=== PATIENT | female | born 1995 | race American Indian/Alaskan Native ===

== ENCOUNTER 2017-05-25 01:35 | Inpatient (IN) | payer MEDICAID ==
[2017-05-25 01:41] VITALS: BMI 47.7
--- NOTE | 2017-05-25 01:58 | ED PDOC ---
Psych Transfer Clearance - Clearance Statement Clearance Statement: Reviewed vital signs, lab results and transfer papers. Patient clinically stable for psychiatric admission.
[2017-05-25] MEDS ORDERED: Magnesium Hydroxide Susp 30 ml UD PO PRN (02:06)
[2017-05-25] MEDS ORDERED: Alum-Mag Hydrox-Simethicone Susp (30 mL) PO PRN (02:06)
[2017-05-25] MEDS ORDERED: DiphenhydrAMINE 50 mg/ml Inj IM PRN (02:06)
--- NOTE | 2017-05-25 03:03 | PCM.BM ---
<Vish Haynes - Last Filed: 05/25/17 03:01> Treatment Plan Problems - Problems identified on initial assessmt Feelings of worthlessness Date Initiated: 05/25/17 Time Initiated: 03:02 Assessment reference: NA Status: Active Altered sleep Date Initiated: 05/25/17 Time Initiated: 03:02 Assessment reference: NA Status: Active Treatment assets and liabiliti Patient Assests: cooperative, educated, negotiates basic needs Patient Liabilities: poor support system, dietary restrictions, substance abuse , medical problems - Milieu Protocol Maintain good personal hygiene: daily Encourage regular showers, daily Remind patient to perform daily oral care, daily Assist patient to perform ADL's Conduct patient checks and document Observation sheet: Q15 minutes Maintain personal safety: every shift Educate patient to report safety concerns to staff, every shift Monitor environment for contraband/sharps Medication safety: Monitor for expected outcome, potential side effects: every shift, Assess barriers to learning: every shift, Assess readiness for medication education: every shift Family Contact Family involvement: Famliy/SO not involved Discharge/Continuing Care - Education Needs Education Needs: Patient Medication, Patient Diagnosis/Disease Process, Patient Coping Skills, Patient Community resources, Patient Activities of Daily Living, Patient Nutrition, Patient Aftercare Safety Plan - Discharge Discharge Criteria: Tolerates medication w/o severe side effects, Free of Suicidal thoughts, Normal sleep pattern, Ability to care for self, No longer exhibiting s/s of withdrawal Discharge to:: Home <Aixa Gomez - Last Filed: 05/27/17 10:57> Treatment assets and liabiliti Patient Assests: adapts well, cooperative, educated, insightful, ADL independent , good support system, negotiates basic needs Patient Liabilities: financial problems, dietary restrictions, substance abuse, medical problems Family Contact Family involvement: Family/SO is involved Family contact: Patient agrees to contact Family contact name: Nanda Akhtar (mother) ([phone]) Family contacted how many times per week?: 1 Family contact comment: Patient reports there are specific times mother answers her phone. Cytology Technologist provided business card for patient to give mother so that junior technical writer can be contacted at a convenient time for Ms. Akhtar. - Goals for Treatment Patient goals for treatment: Patient presents as goal oriented and expresses being motivated for tx. Patient to continue stabilization on 3NP through medication management and group/supportive therapy. Patient to be encouraged to attend 3-6 groups weekly to develop coping skills, improve insight and promote compliance and sobriety upon discharge. Patient to be provided with referral for appropriate level of aftercare. Patient ambivalent regarding inpatient rehab referrals but has agreed to initiate referral process. Patient agreeable to IOP referral to [facility] in the event that patient is placed on rehab waiting lists. Discharge/Continuing Care - Education Needs Education Needs: Family Medication, Family Diagnosis/Disease Process, Family Coping Skills, Family Aftercare Safety Plan, Patient Medication, Patient Diagnosis/Disease Process, Patient Coping Skills, Patient Community resources, Patient Aftercare Safety Plan - Discharge Discharge Criteria: Tolerates medication w/o severe side effects, Free of Suicidal thoughts, Normal sleep pattern, Ability to care for self, No longer exhibiting s/s of withdrawal Discharge to:: Home, With Family - Treatment Team Participation Patient/Family/SO Statement: 05/27/17 10:56 Patient invited and encouraged to attend treatment team by RN. As per RB BW patient stated "I'm about to step into the shower" and declined to attend treatment team despite encouragement from staff.
[2017-05-25] MEDS: Multivitamin With Minerals Tab PO SCH (08:43)
[2017-05-25 09:07] LABS: T4 6.05 ug/dl (5.5-11.0)
[2017-05-25 09:21] LABS: THYROID STIMULATING HORMONE 2.93 mIU/ML (0.46-4.68)
--- NOTE | 2017-05-25 11:11 | CP.PCM.CON ---
History of Present Illness - History of Present Illness History of Present Illness: 21 yo morbidly obeses female with history of DM2 (not on diabetic meds for 2 months) admitted to psyche unit because of worsening depression. Review of Systems - Review of Systems All systems: reviewed and no additional remarkable complaints except (aside from those mentioned above, 12 point system review were negative by me) Past Patient History - Tetanus Immunizations Tetanus Immunization: Unknown - Past Medical History & Family History Past Medical History?: No - Past Social History Smoking Status: Light Smoker < 10 Cigarettes Daily Alcohol: > 2 Drinks/Day Drugs: Denies - CARDIAC Hx Cardiac Disorders: No - PULMONARY Hx Respiratory Disorders: No - NEUROLOGICAL Hx Neurological Disorder: No - HEENT Hx HEENT Problems: Yes Other/Comment: wears glasses - RENAL Hx Chronic Kidney Disease: No - ENDOCRINE/METABOLIC Hx Diabetes Mellitus Type 2: Yes (noncompliant w/metformin for 2 months) - HEMATOLOGICAL/ONCOLOGICAL Hx Blood Disorders: No - INTEGUMENTARY Hx Dermatological Problems: No - MUSCULOSKELETAL/RHEUMATOLOGICAL Hx Musculoskeletal Disorders: No - GASTROINTESTINAL Hx Gastrointestinal Disorders: Yes Other/Comment: has been vomiting over past few days - GENITOURINARY/GYNECOLOGICAL Hx Genitourinary Disorders: Yes Other/Comment: irregular menses last february 2017 - PSYCHIATRIC Hx Anxiety: Yes Hx Depression: Yes Hx Substance Use: No - SURGICAL HISTORY Hx Surgeries: Yes Hx Tonsillectomy: Yes - ANESTHESIA Hx Anesthesia: Yes Hx Anesthesia Reactions: No Hx Malignant Hyperthermia: No Has any member of the family had a problem w/ anesthesia?: No Meds Allergies/Adverse Reactions: Allergies Allergy/AdvReac Type Severity Reaction Status Date / Time No Known Allergies Allergy Verified 05/25/17 01:37 - Medications Medications: Current Medications Al Hydrox/Mg Hydrox/Simethicone (Maalox Plus 30 Ml) 30 ml PO Q4 PRN PRN Reason: Dyspepsia Diphenhydramine HCl (Benadryl) 50 mg IM Q6 PRN PRN Reason: Extrapyramidal S/S Unable PO Diphenhydramine HCl (Benadryl) 50 mg PO Q6 PRN PRN Reason: Extrapyramidal Symptoms Folic Acid (Folic Acid) 1 mg PO DAILY DEVYN Last Admin: 05/25/17 08:43 Dose: 1 mg Haloperidol (Haldol) 5 mg PO Q4 PRN PRN Reason: Agitation Haloperidol Lactate (Haldol) 5 mg IM Q4 PRN PRN Reason: Agitation, Unable to Take PO Lorazepam (Ativan) 2 mg IM Q4 PRN PRN Reason: Anxiety/Agitation,Unable PO Lorazepam (Ativan) 2 mg PO Q4 PRN PRN Reason: Anxiety/Agitation Last Admin: 05/25/17 02:39 Dose: 2 mg Lorazepam (Ativan) 1 mg PO TID PENDING SALE TO [facility] Last Admin: 05/25/17 08:43 Dose: 1 mg Magnesium Hydroxide (Milk Of Magnesia) 30 ml PO HS PRN PRN Reason: Constipation Multivitamins/Minerals (Therapeutic-M Tab) 1 tab PO DAILY PENDING SALE TO [facility] Last Admin: 05/25/17 08:43 Dose: 1 tab Thiamine HCl (Vitamin B1 Tab) 100 mg PO DAILY PENDING SALE TO [facility] Last Admin: 05/25/17 08:43 Dose: 100 mg Physical Exam - Constitutional Appears: Other (morbidly obese) - Head Exam Head Exam: ATRAUMATIC - Eye Exam Eye Exam: absent: Scleral icterus - ENT Exam ENT Exam: Mucous Membranes Moist - Neck Exam Neck exam: Negative for: Meningismus - Respiratory Exam Respiratory Exam: absent: Rhonchi, Wheezes, Respiratory Distress - Cardiovascular Exam Cardiovascular Exam: REGULAR RHYTHM, +S1, +S2 - GI/Abdominal Exam GI & Abdominal Exam: Soft. absent: Tenderness - Rectal Exam Rectal Exam: Deferred - Neurological Exam Neurological exam: Alert, Oriented x3 - Psychiatric Exam Psychiatric exam: Normal Affect - Skin Skin Exam: Dry, Intact Results - Vital Signs Recent Vital Signs: Last Vital Signs Temp 97.7 F 05/25/17 09:00 Pulse 63 05/25/17 09:00 Resp 18 05/25/17 09:00 BP 159/101 H 05/25/17 09:00 Pulse Ox 97 05/25/17 01:37 - Labs Labs: Laboratory Results - last 24 hr 05/25/17 08:15 Triglycerides 215 H Cholesterol 166 LDL Cholesterol Direct 89 HDL Cholesterol 58 Thyroxine (T4) 6.05 TSH 3rd Generation 2.93 Assessment & Plan (1) Depression Status: Acute Comment: psyche is managing (2) DM2 (diabetes mellitus, type 2) Status: Acute Comment: accuchek ACHS. HgA1C, BMP in am
[2017-05-25 11:35] LABS: BLOOD UREA NITROGEN 7 mg/dl (7-17); CALCIUM 8.6 mg/dL (8.4-10.2); CARBON DIOXIDE 29 mmol/L (22-30); CHLORIDE 95 mmol/L (98-107); GFR AFRICAN-AMERICAN > 60; GLUCOSE,RANDOM 90 mg/dL (65-105); POTASSIUM 3.2 MMOL/L (3.6-5.0); SODIUM 136 mmol/l (132-148)
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
[2017-05-25] MEDS ORDERED: Potassium Chloride 20 mEq ER Tab PO ONE (19:06)
[2017-05-26 08:37] LABS: ALB/GLOB RATIO 1.1 (1.0-2.1); ALKALINE PHOSPHATASE 93 U/L (38-126); ALT/SGPT 89 U/L (9-52); AST/SGOT 179 U/L (14-36); BILIRUBIN,TOTAL 1.7 mg/dl (0.2-1.3); BLOOD UREA NITROGEN 12 mg/dl (7-17); CALCIUM 8.6 mg/dL (8.4-10.2); CARBON DIOXIDE 27 mmol/L (22-30); CHLORIDE 95 mmol/L (98-107); GFR AFRICAN-AMERICAN > 60; GLUCOSE,RANDOM 95 mg/dL (65-105); POTASSIUM 3.3 MMOL/L (3.6-5.0); SODIUM 137 mmol/l (132-148); TOTAL PROTEIN 6.6 G/DL (6.3-8.2)
[2017-05-26] MEDS: Multivitamin With Minerals Tab PO SCH (09:09)
--- NOTE | 2017-05-26 19:26 | PCM.PYCHPN ---
Psychiatric Progress Note - Psychiatric Progress Note Patient seen today, length of contact: chart reviewed case discussed with team Patient Chief Complaint: i was drinking to try to control my anxiety and depression and was feeling overwhelmed Problems Identified/Issues Discussed: alteration in mood alteration in coping substance use etoh active Medical Problems: per chart Diagnostic Results: per psychiatry per medicine per nursing per social work DSM 5 Symptoms Update: alteration in mood, substance use Medication Change: No Medical Record Reviewed: Yes Consults ordered or reviewed: pt being evaluated and followed by hospitalist Mental Status Examination - Cognitive Function Orientation: Person, Place, Situation, Time Memory: Intact Attention: WNL Concentration: WNL Association: [facility] Fund of Knowledge: [facility] Decription of patient's judgement and insights: impaired - Mood Mood: Depressed, Anxious - Affect Affect: Constricted - Speech Speech: Soft Additional comments: varied rate - Formal Thought Process Formal Thought Process: No Impairment - Homicidal Ideation Homicidal Ideation: No Goal/Treatment Plan - Goal/Treatment Plan Need for Continued Stay: Remain at risks for inpatient hospitalization Progress Toward Problem(s) and Goals/Treatment Plan: inpt milieu adjust meds per clinical status vital signs clinical observation per protocol and per status prns per protocol and per status discharge planning in progress Estimated Date of D/C: 06/01/17 - Smoking Cessation Smoking Cessation Initiated: No Reason for not providing: defers need
[2017-05-27] MEDS: Multivitamin With Minerals Tab PO SCH (09:00)
--- NOTE | 2017-05-27 13:33 | PCM.PYCHPN ---
Psychiatric Progress Note - Psychiatric Progress Note Patient seen today, length of contact: discussed with team Patient Chief Complaint: i am depressed Problems Identified/Issues Discussed: pt is agreeable to an inpt rehab referral. acknowledges loss of control over her alcohol use. she is reporting no side effects with zoloft, improved sleep with trazodone. she denies any alcohol withdrawal symptoms. she is tearful and reports she gets negative thoughts that make her feel frustrated. she states she is "trying really hard to talk to people...because at home i would stay in my room and my mom would have to check to see if i was there...but it's hard to not go back to that" Medication Change: No Medical Record Reviewed: Yes Mental Status Examination - Cognitive Function Orientation: Person, Place, Situation, Time Memory: Intact Attention: WNL Concentration: WNL Association: WNL Fund of Knowledge: WNL Decription of patient's judgement and insights: fair - Mood Mood: Depressed Additional comments: no panic reported - Affect Affect: Constricted - Speech Speech: Soft - Formal Thought Process Formal Thought Process: No Impairment - Suicidal Ideation Suicidal Ideation: No Plan: denies current suicidal thoughts - Homicidal Ideation Homicidal Ideation: No Goal/Treatment Plan - Goal/Treatment Plan Need for Continued Stay: Remain at risks for inpatient hospitalization, Severe functional impairment Progress Toward Problem(s) and Goals/Treatment Plan: mdd recurrent moderate alcohol dependence continue with current treatment lower ativan to bid raise zoloft to 75mg daily continue with trazodone for insomnia refer to inpt rehab Estimated Date of D/C: 06/01/17
[2017-05-28] MEDS: Multivitamin With Minerals Tab PO SCH (09:37)
--- NOTE | 2017-05-28 10:15 | PCM.PYCHPN ---
Psychiatric Progress Note - Psychiatric Progress Note Patient seen today, length of contact: discussed with team Patient Chief Complaint: i feel depressed Problems Identified/Issues Discussed: pt still agreeable to substance abuse treatment. she reports her sleep is good. her anxiety is less intense per her report. she states she tries very hard to stay out of her room and she struggles to stay "social" she has periods of tearfulness. Medication Change: Yes (inc. zoloft/neurontin) Medical Record Reviewed: Yes Mental Status Examination - Cognitive Function Orientation: Person, Place, Situation, Time Memory: Intact Attention: WNL Concentration: WNL Association: [facility] Fund of Knowledge: [facility] Decription of patient's judgement and insights: fair - Mood Mood: Depressed - Affect Affect: Constricted - Speech Speech: Soft - Formal Thought Process Formal Thought Process: No Impairment Psychotic Thoughts and Behaviors: denies a/v hallucinations - Suicidal Ideation Suicidal Ideation: No - Homicidal Ideation Homicidal Ideation: No Goal/Treatment Plan - Goal/Treatment Plan Need for Continued Stay: Remain at risks for inpatient hospitalization, Severe functional impairment Progress Toward Problem(s) and Goals/Treatment Plan: mdd recurrent moderate alcohol dependence continue with current treatment lower ativan to 0.5 mg bid tomorrow raise zoloft to 100mg daily continue with trazodone for insomnia refer to inpt rehab Estimated Date of D/C: 06/01/17
[2017-05-28 18:05] VITALS: O2SAT 100
[2017-05-29] MEDS: Multivitamin With Minerals Tab PO SCH (09:07)
[2017-05-29] MEDS ORDERED: Potassium Chloride 20 mEq ER Tab PO ONE (09:30)
--- NOTE | 2017-05-29 10:28 | PCM.PYCHPN ---
Psychiatric Progress Note - Psychiatric Progress Note Patient seen today, length of contact: discussed with team Patient Chief Complaint: im doing well Problems Identified/Issues Discussed: pt still with improved sleep. no withdrawal symptoms. depression persists, but pt feels a little more hopeful. denies medication side effects. Medication Change: No ( ) Medical Record Reviewed: Yes Mental Status Examination - Cognitive Function Orientation: Person, Place, Situation, Time Memory: Intact Attention: WNL Concentration: WNL Association: WNL Fund of Knowledge: [facility] Decription of patient's judgement and insights: fair - Mood Mood: Depressed - Affect Affect: Constricted - Speech Speech: Soft - Formal Thought Process Formal Thought Process: No Impairment Psychotic Thoughts and Behaviors: denies a/v hallucinations - Suicidal Ideation Suicidal Ideation: No - Homicidal Ideation Homicidal Ideation: No Goal/Treatment Plan - Goal/Treatment Plan Need for Continued Stay: Remain at risks for inpatient hospitalization, Severe functional impairment Progress Toward Problem(s) and Goals/Treatment Plan: mdd recurrent moderate alcohol dependence continue with current treatment lower ativan to 0.5 mg bid continue zoloft 100mg daily continue with trazodone for insomnia refer to inpt rehab Estimated Date of D/C: 06/01/17
[2017-05-29 18:59] VITALS: RESP 18
[2017-05-30] MEDS: Multivitamin With Minerals Tab PO SCH (09:22)
--- NOTE | 2017-05-30 11:18 | PCM.PYCHPN ---
Psychiatric Progress Note - Psychiatric Progress Note Patient seen today, length of contact: discussed with team Patient Chief Complaint: i had poor sleep Problems Identified/Issues Discussed: pt reports frequent urination last night. she reports feeling dizzy when she stands up. she is feeling depressed about being in the hospital. Medication Change: No ( ) Medical Record Reviewed: Yes Mental Status Examination - Cognitive Function Orientation: Person, Place, Situation, Time Memory: Intact Attention: WNL Concentration: WNL Association: WNL Fund of Knowledge: [facility] Decription of patient's judgement and insights: fair - Mood Mood: Depressed - Affect Affect: Constricted - Speech Speech: Soft - Formal Thought Process Formal Thought Process: No Impairment Psychotic Thoughts and Behaviors: denies a/v hallucinations - Suicidal Ideation Suicidal Ideation: No - Homicidal Ideation Homicidal Ideation: No Goal/Treatment Plan - Goal/Treatment Plan Need for Continued Stay: Remain at risks for inpatient hospitalization, Severe functional impairment Progress Toward Problem(s) and Goals/Treatment Plan: mdd recurrent moderate alcohol dependence continue with current treatment [facility] has called hospitalist regarding pts. complaints of frequent urination and dizziness continue zoloft 100mg daily- may need to reduce back to 75mg continue with trazodone for insomnia refer to inpt rehab Estimated Date of D/C: 06/01/17
[2017-05-30 13:36] LABS: RBC URINE 1 /hpf (0-3); URINE BILIRUBIN NEGATIVE (NEGATIVE); URINE BLOOD NEGATIVE (NEGATIVE); URINE COLOR YELLOW (YELLOW); URINE GLUCOSE (UA) NEG (Normal); URINE KETONE NEGATIVE (NEGATIVE); URINE LEUKOCYTE ESTERASE NEG Leu/uL (Negative); URINE PROTEIN NEGATIVE (NEGATIVE); URINE UROBILINOGEN 0.2-1.0 mg/dL (0.2-1.0); WBC URINE 1 /hpf (0-5)
[2017-05-31] MEDS: Multivitamin With Minerals Tab PO SCH (08:57)
[2017-05-31 08:59] VITALS: BP 132/72; PULSE 88
[2017-05-31 09:15] VITALS: TEMP 98.1
--- NOTE | 2017-05-31 10:02 | PCM.PYCHDC ---
Mental Status Examination - Mental Status Examination Orientation: Person, Place, Situation, Time Memory: Intact Mood: Neutral Affect: Broad (smiling, dancing) Speech: Appropriate Attention: WNL Concentration: WNL Association: WNL Fund of Knowledge: WNL Formal Thought Process: No Impairment Description of patient's judgement and insight: fair Psychotic Thoughts and Behaviors: denies a/v hallucinations Suicidal Ideation: No Current Homicidal Ideation?: No Plan: pt denies suicidal or homicidal thoughts/plans or intent Discharge Summary - Discharge Note Reason for Hospitalization: pt reported feeling depressed, having suicidal thoughts in context of alcohol use Psychiatric History (includes Medical, Family, Personal Hx): history of treatment for depression and alcohol use Laboratory Data: Abnormal Lab Results 05/30/17 05/30/17 10:10 13:10 POC Glucose (mg/dL) 87 Urine Color Yellow Urine Clarity Slighty-cloudy Urine pH 6.0 Ur Specific [place] 1.021 Urine Protein Negative Urine Glucose (UA) Neg Urine Ketones Negative Urine Blood Negative Urine Nitrate Negative Urine Bilirubin Negative Urine Urobilinogen 0.2-1.0 Ur Leukocyte Esterase Neg Urine RBC (Auto) 1 Urine Microscopic WBC 1 Ur Squamous Epith Cells 3 Consultations:: List each consultation separately and include: 1. Reason for request. 2. Findings. 3. Follow-up Consultations: seen by hospitalist Summary of Hospital Course include:: 1. Description of specific treatment plan utilized for patients during their course of treatmen. 2. Summarize the time- course for resolution of acute symptoms and/or regressed behaviors. 3. Describe issues identified and worked on during hospitalization. 4. Describe medication utilized. 5. Describe medical problems identified and treated. 6. Reassessment of suicide risk Summary of Hospital Course: pt is 21 yo female with history of alcohol use disorder, depression and anxiety. she is living with her family in [place]. she was hospitalized at [facility] in July and sent to their iop program after her discharge. she states she stopped going to the program and stopped taking her zoloft. she took the trazodone they prescribed as it helped her sleep but ran out of medications. she states she has been feeling depressed and having frequent panic attacks over the last few weeks. she reports she gets short of breath, chest tightening and feels overwhelmed. she reports she has low energy, feels helpless and with poor concentration. she left work and packed all of her things the day she presented to the ER. she has been binge drinking alcohol and presented to [facility] with a BAL of over 250. she reports she drinks a liter or more of vodka at a time. she has tried AA, but did not find it particularly helpful. pt came in seeking help because she feels things are getting out of control for her. she was having suicidal thoughts prior to admission, without a specific plan or intent to harm herself. hospital course: admitted to [facility] and oriented to the unit. placed on routine safety protocols. was started on ativan to prevent alcohol withdrawal complications and the ativan was tapered of and discontinued without any adverse events. she was started on zoloft and the dose was titrated up to 100mg with good effect. the trazodone helped the patient sleep. she was seen by the manager medical writing and started on medication for hypertension. she was referred to aftercare and was also referred to an inpatient rehab program at [facility] for alcohol use disorder. the patient's ativan was discontinued prior to her discharge at the time of discharge the patient was denying suicidal or homicidal thoughts. - Final Diagnosis (DSM 5) Condition upon Discharge: STABLE DSM 5: major depression recurrent moderate alcohol use disorder Disposition: HOME/ ROUTINE Follow-up Treatment Plan: follow up with aftercare as directed take medications as prescribed do not use alcohol, tobacco or other illicit substances call 911 if any suicidal or homicidal thoughts follow up with your primary care doctor regarding your hip pain and your high blood pressure Prescriptions/Medication Reconciliation: Folic Acid 1 mg PO DAILY #30 tab Gabapentin [Neurontin] 400 mg PO TID #45 cap Lisinopril [Zestril] 20 mg PO DAILY #15 tab Multimineral/Multivitamin [Therapeutic-M Tab] 1 tab PO DAILY #30 tab Sertraline [Zoloft] 100 mg PO DAILY #15 tab Thiamine [Vitamin B1 Tab] 100 mg PO DAILY #30 tab traZODone [Desyrel] 100 mg PO HS #15 tab - Smoking Cessation Smoking Cessation Medication prescribed: No - Antipsychotic Medications Pt discharged on 2 or more routine antipsychotic medications: No
== END 2017-05-31 14:40 | disposition home or self-care (01) | DRG 430 ==
LOC: H.ER 01:35 → H.PSYCH 01:38
PROVIDERS: ADMIT Psychiatry & Neurology Psychiatry; ATTEND Psychiatry & Neurology Psychiatry
PROC: GZ3ZZZZ Medication Management (ICD-10-PCS; principal; 2017-05-25)
PROC: GZHZZZZ Group Psychotherapy (ICD-10-PCS; 2017-05-25)
PROC: GZ56ZZZ Individual Psychotherapy, Supportive (ICD-10-PCS; 2017-05-25)
DX: F33.1 Major depressive disorder, recurrent, moderate (principal); E66.01 Morbid (severe) obesity due to excess calories; R45.851 Suicidal ideations; I10 Essential (primary) hypertension; E11.9 Type 2 diabetes mellitus without complications; F17.210 Nicotine dependence, cigarettes, uncomplicated; F10.20 Alcohol dependence, uncomplicated; F41.9 Anxiety disorder, unspecified; F41.0 Panic disorder [episodic paroxysmal anxiety]; G47.00 Insomnia, unspecified; Z91.19 Patient's noncompliance with other medical treatment and regimen; Z91.410 Personal history of adult physical and sexual abuse